=== PATIENT | female | born 1985 | race Caucasian/White ===

== ENCOUNTER 2020-02-15 06:09 | Inpatient (IN) | payer OTHER ==
[~2020-02-15 06:09] MED LIST: Bupivacaine 0.25% 10 ML SDV ONE
[2020-02-15] MEDS ORDERED: Ondansetron 4 MG/2 ML SDV IVPUSH PRN (06:22)
[2020-02-15] MEDS ORDERED: Sodium Chloride 0.9% 10 ML Syringe FLUSH PRN (06:22)
[2020-02-15] MEDS ORDERED: Nalbuphine 10 MG/ML Syringe IVPUSH PRN (06:22)
[2020-02-15] MEDS ORDERED: Lidocaine 1% 50 ML MDV INJECT ONE (06:22)
[2020-02-15] MEDS ORDERED: Calcium Carbonate 500 MG Tab.Chew PO PRN (06:22)
[2020-02-15] MEDS ORDERED: Oxytocin/Lactated Ringers 10 UNIT/1,000 ML BAG IV SCH (06:30)
--- NOTE | 2020-02-15 07:14 | PCM.LDHP ---
L&D History of Present Illness - General Date of Service: 02/15/20 Admit Problem/Dx: Patient Status Order with Admit Dx/Problem 02/15/20 06:22 Patient Status [ADT] Routine Admission Diagnosis/Problem Admission Diagnosis/Problem Active labor Source of Information: Patient History Limitations: Reports: No Limitations - History of Present Illness Introduction:: Patient is a 34 y/o at 40 0/7 wks who presents in labor. Contractions started a few hours prior to presentation. Strong. No LOF. 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 LMP (Approximate): - Past Surgical History Female Surgical History: Reports: Section Social & Family History - Family History Family Medical History: Noncontributory - Tobacco Use Smoking Status *Q: Former Smoker Years of Tobacco use: 10 Packs/Tins Daily: 0.5 Used Tobacco, but Quit: Yes Month/Year Tobacco Last Used: 10/2013 Second Hand Smoke Exposure: No - Alcohol Use Alcohol Use History: No - Recreational Drug Use Recreational Drug Use: No H&P Review of Systems - Review of Systems: Review Of Systems: See Below General: Reports: No Symptoms Pulmonary: Reports: No Symptoms Cardiovascular: Reports: No Symptoms Gastrointestinal: Reports: No Symptoms Genitourinary: Reports: No Symptoms Musculoskeletal: Reports: No Symptoms Psychiatric: Reports: No Symptoms Neurological: Reports: No Symptoms L&D Exam - Exam Exam: See Below - Vital Signs Vital Signs: Last Vital Signs Temp 36.5 C 02/15/20 06:22 Pulse 99 02/15/20 06:22 Resp 16 02/15/20 06:22 BP 147/89 H 02/15/20 06:22 Pulse Ox 100 02/15/20 06:22 Weight: 116.256 kg - OB Specific Contraction Intensity: Moderate to Strong Movement: Active Heart Tones: Present Heart Tones per Min: 145 Heart Rate (FHR) Variability: Moderate (6-25 bmp) Presentation: Vertex - Gage Score Gage Score Cervix Position: Anterior Gage Score Consistency: Soft Gage Score Effacement: >80% Gage Score Dilation: 3-4 cm Gage Score Infant's Station: -1 ,0 Gage Score Total: 11 - Exam General: Alert, Oriented, Cooperative Lungs: Clear to Auscultation, Normal Respiratory Effort Cardiovascular: Regular Rate, Regular Rhythm GI/Abdominal Exam: Soft, Non-Tender Genitourinary: Normal external exam Extremities: Normal Inspection Skin: Warm, Dry, Intact - Patient Data Lab Results Last 24 hrs: Laboratory Results - last 24 hr 02/15/20 Range/Units 06:31 WBC 16.80 H (3.98-10.04) K/mm3 RBC 4.52 (3.98-5.22) M/mm3 Hgb 13.5 (11.2-15.7) gm/dl Hct 40.0 (34.1-44.9) % MCV 88.5 (79.4-94.8) fl MCH 29.9 (25.6-32.2) pg MCHC 33.8 (32.2-35.5) g/dl RDW Std Deviation 41.8 (36.4-46.3) fL Plt Count 199 (182-369) K/mm3 MPV 10.6 (9.4-12.3) fl Neut % (Auto) 86.4 H (34.0-71.1) % Lymph % (Auto) 6.8 L (19.3-51.7) % [place] % (Auto) 5.9 (4.7-12.5) % Eos % (Auto) 0.3 L (0.7-5.8) Baso % (Auto) 0.1 (0.1-1.2) % Neut # (Auto) 14.52 H (1.56-6.13) K/mm3 Lymph # (Auto) 1.15 L (1.18-3.74) K/mm3 [place] # (Auto) 0.99 H (0.24-0.36) K/mm3 Eos # (Auto) 0.05 (0.04-0.36) K/mm3 Baso # (Auto) 0.01 (0.01-0.08) K/mm3 Result Diagrams: 02/15/20 06:31 - Problem List (1) 40 weeks gestation of SNOMED Code(s): 34753483 ICD Code: Z3A.40 - 40 WEEKS GESTATION OF Status: Acute Current Visit: Yes (2) Normal labor SNOMED Code(s): 09923510 ICD Code: O80 - ENCOUNTER FOR FULL-TERM UNCOMPLICATED DELIVERY; Z37.9 - OUTCOME OF DELIVERY, UNSPECIFIED Status: Acute Current Visit: Yes (3) History of SNOMED Code(s): 291483134 ICD Code: Z98.891 - HISTORY OF UTERINE SCAR FROM PREVIOUS SURGERY Status: Acute Current Visit: Yes (4) Desires (vaginal after ) trial SNOMED Code(s): 877720706, 263872469 ICD Code: O34.219 - MATERNAL CARE FOR UNSP TYPE SCAR FROM PREVIOUS DEL Status: Acute Current Visit: Yes (5) Rh negative state in antepartum period SNOMED Code(s): 176497552 ICD Code: O26.899 - OTH RELATED CONDITIONS, UNSPECIFIED TRIMESTER; Z67.91 - UNSPECIFIED BLOOD TYPE, RH NEGATIVE Status: Acute Current Visit: Yes Problem List Initiated/Reviewed/Updated: Yes Orders Last 24hrs: Active Orders 24 hr Category Date Time Status Patient Status [ADT] Routine ADT 02/15/20 06:22 Active Activity as Tolerated [RC] PFP Care 02/15/20 06:22 Active Communication Order [RC] ASDIRECTED Care 02/15/20 06:22 Active Heart Tones [RC] ASDIRECTED Care 02/15/20 06:23 Active Notify Provider [RC] PFP Care 02/15/20 06:22 Active Notify Provider [RC] PRN Care 02/15/20 06:22 Active Peripheral IV Care [RC] Q2HR Care 02/15/20 06:23 Active Pump Management, Intrathecal [RC] ASDIRECTED Care 02/15/20 06:23 Active Urinary Catheter Assessment [RC] ASDIRECTED Care 02/15/20 06:22 Active Vital Signs [RC] PER UNIT ROUTINE Care 02/15/20 06:22 Active Regular Diet [DIET] Diet 02/15/20 Breakfast Active CBC WITH AUTO DIFF [HEME] Stat Lab 02/15/20 06:31 Results RAPID PLASMA REAGIN,RPR [CHEM] Stat Lab 02/15/20 06:31 Received TYPE AND SCREEN [BBK] Stat Lab 02/15/20 06:31 Received Calcium Carbonate [Tums] Med 02/15/20 06:22 Active 1,000 mg PO Q2H PRN Lactated Ringers [Ringers, Lactated] 1,000 ml Med 02/15/20 06:30 Active IV ASDIRECTED Nalbuphine [Nubain] Med 02/15/20 06:22 Active 10 mg IVPUSH Q2H PRN Ondansetron [Zofran] Med 02/15/20 06:22 Active 4 mg IVPUSH Q4H PRN Oxytocin/Lactated Ringers [Pitocin in LR 10 Units/1,000 Med 02/15/20 06:30 Active ML] 10 unit in 1,000 ml IV .CONTINUOUS Sodium Chloride 0.9% [Saline Flush] Med 02/15/20 06:22 Active 10 ml FLUSH ASDIRECTED PRN Electronic Heart Tones Ext w TOCO [WOMSER] Oth 02/15/20 06:22 Ordered Routine Electronic Heart Tones Internal [WOMSER] Per Unit Oth 02/15/20 06:22 Ordered Routine Peripheral IV Insertion Adult [OM.PC] Routine Oth 02/15/20 06:22 Ordered Resuscitation Status Routine Resus Stat 02/15/20 06:22 Ordered Medication Orders Calcium Carbonate/Glycine (Tums) 1,000 mg PO Q2H PRN PRN Reason: Indigestion Lactated Ringer's (Ringers, Lactated) 1,000 mls @ 100 mls/hr IV ASDIRECTED HUSEYIN Oxytocin/Lactated Ringer's (Pitocin In Lr 10 Units/1,000 Ml) 10 unit in 1,000 mls @ 500 mls/hr IV .CONTINUOUS HUSEYIN Nalbuphine HCl (Nubain) 10 mg IVPUSH Q2H PRN PRN Reason: Pain Ondansetron HCl (Zofran) 4 mg IVPUSH Q4H PRN PRN Reason: Nausea/Vomiting Sodium Chloride (Saline Flush) 10 ml FLUSH ASDIRECTED PRN PRN Reason: Keep Vein Open Assessment/Plan Comment:: * Labs done * GBS negative * Pain management per patient preference * Patient with history of and then for NRFS - desires . Aware of risks/benefits * Anticipate * Assess baby blood type following delivery to see if additional Rhogam required
[2020-02-15] MEDS: Lactated Ringers 1,000 ML IV SCH ×2 (07:18→08:32)
[2020-02-15] MEDS ORDERED: ePHEDrine 50 MG/ML SDV IVPUSH PRN (07:22)
[2020-02-15] MEDS ORDERED: diphenhydrAMINE 50 MG/ML SDV IVPUSH PRN (07:22)
[2020-02-15] MEDS ORDERED: Bupivacaine/fentaNYL/NS 100 ML Bag EPIDUR PRN (07:22)
[2020-02-15] MEDS ORDERED: fentaNYL 100 MCG/2 ML SDV EPIDUR PRN (07:22)
--- NOTE | 2020-02-15 08:31 | PCM.PREANE ---
Preanesthetic Assessment - Procedure Proposed Procedure: epidural - Anesthesia/Transfusion/Family Hx Anesthesia History: Prior Anesthesia Without Reaction Family History of Anesthesia Reaction: No Transfusion History: No Prior Transfusion(s) - Review of Systems General: Fatigue Pulmonary: No Symptoms Cardiovascular: No Symptoms Gastrointestinal: Abdominal Pain (labor) Neurological: No Symptoms Other: Reports: None - Physical Assessment Vital Signs: Last Vital Signs Temp 36.5 C 02/15/20 06:22 Pulse 99 02/15/20 06:22 Resp 16 02/15/20 06:22 BP 147/89 H 02/15/20 06:22 Pulse Ox 100 02/15/20 06:22 Height: 1.73 m Weight: 116.256 kg ASA Class: 2 Mental Status: Alert & Oriented x3 Airway Class: Mallampati = 2 Dentition: Reports: Normal Dentition Thyro-Mental Finger Breadths: 3 Mouth Opening Finger Breadths: 3 ROM/Head Extension: Full Lungs: Clear to Auscultation, Normal Respiratory Effort Cardiovascular: Regular Rate, Regular Rhythm - Lab Values: Laboratory Last Values WBC 16.80 K/mm3 (3.98-10.04) H 02/15/20 06:31 RBC 4.52 M/mm3 (3.98-5.22) 02/15/20 06:31 Hgb 13.5 gm/dl (11.2-15.7) 02/15/20 06:31 Hct 40.0 % (34.1-44.9) 02/15/20 06:31 MCV 88.5 fl (79.4-94.8) 02/15/20 06:31 MCH 29.9 pg (25.6-32.2) 02/15/20 06:31 MCHC 33.8 g/dl (32.2-35.5) 02/15/20 06:31 RDW Std Deviation 41.8 fL (36.4-46.3) 02/15/20 06:31 Plt Count 199 K/mm3 (182-369) 02/15/20 06:31 MPV 10.6 fl (9.4-12.3) 02/15/20 06:31 Neut % (Auto) 86.4 % (34.0-71.1) H 02/15/20 06:31 Lymph % (Auto) 6.8 % (19.3-51.7) L 02/15/20 06:31 [place] % (Auto) 5.9 % (4.7-12.5) 02/15/20 06:31 Eos % (Auto) 0.3 (0.7-5.8) L 02/15/20 06:31 Baso % (Auto) 0.1 % (0.1-1.2) 02/15/20 06:31 Neut # (Auto) 14.52 K/mm3 (1.56-6.13) H 02/15/20 06:31 Lymph # (Auto) 1.15 K/mm3 (1.18-3.74) L 02/15/20 06:31 [place] # (Auto) 0.99 K/mm3 (0.24-0.36) H 02/15/20 06:31 Eos # (Auto) 0.05 K/mm3 (0.04-0.36) 02/15/20 06:31 Baso # (Auto) 0.01 K/mm3 (0.01-0.08) 02/15/20 06:31 Manual Slide Review Abnormal smear 02/15/20 06:31 Blood Type A NEGATIVE 02/15/20 06:31 Gel Antibody Screen Negative 02/15/20 06:31 - Allergies Allergies/Adverse Reactions: Allergies Allergy/AdvReac Type Severity Reaction Status Date / Time No Known Allergies Allergy Verified 02/15/20 06:25 - Anesthesia Plan Pre-Op Medication Ordered: None - Acknowledgements Anesthesia Type Planned: Epidural Pt an Appropriate Candidate for the Planned Anesthesia: Yes Alternatives and Risks of Anesthesia Discussed w Pt/Guardian: Yes Pt/Guardian Understands and Agrees with Anesthesia Plan: Yes PreAnesthesia Questionnaire Gastrointestinal History: Reports: 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: - Past Surgical History Female Surgical History: Reports: Section - SUBSTANCE USE Smoking Status *Q: Former Smoker Tobacco Use Within Last Twelve Months: Cigarettes Second Hand Smoke Exposure: No Recreational Drug Use History: No - HOME MEDS Home Medications: Home Meds Folic Acid 0.8 mg PO DAILY 02/15/20 [History] No122/Iron/Folic Acid [ Multi Tablet] 1 each PO DAILY 02/15/20 [History] - CURRENT (IN HOUSE) MEDS Current Meds: Current Medications Calcium Carbonate/Glycine (Tums) 1,000 mg PO Q2H PRN PRN Reason: Indigestion Diphenhydramine HCl (Benadryl) 25 mg IVPUSH Q6H PRN PRN Reason: Itching Ephedrine Sulfate (Ephedrine Sulfate) 5 mg IVPUSH ASDIRECTED PRN PRN Reason: HYPOTENTSION Fentanyl (Sublimaze) 100 mcg EPIDUR Q3H PRN PRN Reason: Pain Last Admin: 02/15/20 08:04 Dose: 100 mcg Fentanyl/Bupivacaine HCl (Fentanyl/Bupivacaine/Ns 2 Mcg-0.125% 100 Ml) 100 ml EPIDUR CONTINUOUS PRN PRN Reason: Pain Last Admin: 02/15/20 08:04 Dose: 100 ml Lactated Ringer's (Ringers, Lactated) 1,000 mls @ 100 mls/hr IV ASDIRECTED HUSEYIN Last Admin: 02/15/20 07:18 Dose: 100 mls/hr Oxytocin/Lactated Ringer's (Pitocin In Lr 10 Units/1,000 Ml) 10 unit in 1,000 mls @ 500 mls/hr IV .CONTINUOUS HUSEYIN Nalbuphine HCl (Nubain) 10 mg IVPUSH Q2H PRN PRN Reason: Pain Ondansetron HCl (Zofran) 4 mg IVPUSH Q4H PRN PRN Reason: Nausea/Vomiting Sodium Chloride (Saline Flush) 10 ml FLUSH ASDIRECTED PRN PRN Reason: Keep Vein Open Discontinued Medications Lidocaine HCl (Xylocaine 1%) 20 ml INJECT ONETIME ONE Stop: 02/15/20 06:23
--- NOTE | 2020-02-15 11:09 | PCM.DEL ---
L & D Note - General Info Date of Service: 02/15/20 - Delivery Note Labor: Spontaneous Delivery Outcome: Livebirth Delivery Method: Spontaneous Vaginal Delivery-Single Delivery Mode: Spontaneous Presentation: Left Occiput Anterior (TRISTIAN) Nuchal Cord: None Anesthesia Type: Epidural Amniotic Fluid Description: Clear Episiotomy Type: None Laceration: None Placenta: Intact, Spontaneous Cord: 3 Vessels Estimated Blood Loss: 100 [place]: Bulb Syringe, Stimulated, Warmed, [place] Used, Warmer Used Delivery Comments (Free Text/Narrative):: Patient found to be complete and began pushing. With maternal pushing effort head delivered from an TRISTIAN presentation. No nuchal cord present. With gentle downward traction the shoulders and body delivered. Infant placed on maternal abdomen. Cord clamped and cut. Cord blood obtained. Placenta allowed time to separate and expelled intact. Inspection of the perineum showed no lacerations - General Info Date of Service: 02/15/20 - Patient Data Vitals - Most Recent: Last Vital Signs Temp 36.5 C 02/15/20 06:22 Pulse 99 02/15/20 06:22 Resp 16 02/15/20 06:22 BP 147/89 H 02/15/20 06:22 Pulse Ox 100 02/15/20 06:22 Weight - Most Recent: 116.256 kg - Problem List & Annotations (1) 40 weeks gestation of SNOMED Code(s): 86542238 Code(s): Z3A.40 - 40 WEEKS GESTATION OF Status: Acute Current Visit: Yes (2) Normal labor SNOMED Code(s): 73403322 Code(s): O80 - ENCOUNTER FOR FULL-TERM UNCOMPLICATED DELIVERY; Z37.9 - OUTCOME OF DELIVERY, UNSPECIFIED Status: Acute Current Visit: Yes (3) History of SNOMED Code(s): 642431098 Code(s): Z98.891 - HISTORY OF UTERINE SCAR FROM PREVIOUS SURGERY Status: Acute Current Visit: Yes (4) Desires (vaginal after ) trial SNOMED Code(s): 463349552, 512491702 Code(s): O34.219 - MATERNAL CARE FOR UNSP TYPE SCAR FROM PREVIOUS DEL Status: Acute Current Visit: Yes (5) Rh negative state in antepartum period SNOMED Code(s): 118915702 Code(s): O26.899 - OTH RELATED CONDITIONS, UNSPECIFIED TRIMESTER; Z67.91 - UNSPECIFIED BLOOD TYPE, RH NEGATIVE Status: Acute Current Visit: Yes (6) , delivered, current hospitalization SNOMED Code(s): 633536642 Code(s): O34.219 - MATERNAL CARE FOR UNSP TYPE SCAR FROM PREVIOUS DEL Status: Acute Current Visit: Yes - Problem List Review Problem List Initiated/Reviewed/Updated: Yes - My Orders Last 24 Hours: My Active Orders 02/15/20 06:22 Patient Status [ADT] Routine Activity as Tolerated [RC] PFP Communication Order [RC] ASDIRECTED Notify Provider [RC] PFP Notify Provider [RC] PRN Urinary Catheter Assessment [RC] ASDIRECTED Vital Signs [RC] PER UNIT ROUTINE Calcium Carbonate [Tums] 1,000 mg PO Q2H PRN Nalbuphine [Nubain] 10 mg IVPUSH Q2H PRN Ondansetron [Zofran] 4 mg IVPUSH Q4H PRN Sodium Chloride 0.9% [Saline Flush] 10 ml FLUSH ASDIRECTED PRN Electronic Heart Tones Ext w TOCO [WOMSER] Routine Electronic Heart Tones Internal [WOMSER] Per Unit Routine Peripheral IV Insertion Adult [OM.PC] Routine Resuscitation Status Routine 02/15/20 06:23 Heart Tones [RC] ASDIRECTED Peripheral IV Care [RC] Q2HR Pump Management, Intrathecal [RC] ASDIRECTED 02/15/20 06:30 Lactated Ringers [Ringers, Lactated] 1,000 ml IV ASDIRECTED Oxytocin/Lactated Ringers [Pitocin in LR 10 Units/1,000 ML] 10 unit in 1,000 ml IV .CONTINUOUS 02/15/20 06:31 RAPID PLASMA REAGIN,RPR [CHEM] Stat 02/15/20 08:24 PATIENT RETYPE [BBK] Routine 02/15/20 11:04 Patient Status Manage Transfer [TRANSFER] Routine 02/15/20 Breakfast Regular Diet [DIET] - Assessment Assessment:: PPD#0 - Plan Plan:: * Routine cares * Breast feeding * Assess baby blood type following delivery to see if additional Rhogam required * Discharge home in 1-2 days
[2020-02-15] MEDS ORDERED: Benzocaine/Menthol 20%-0.5% Spray 56 GM Canister TOP PRN (11:43)
[2020-02-15] MEDS ORDERED: Ibuprofen 600 MG Tab PO PRN (11:43)
[2020-02-15] MEDS ORDERED: Acetaminophen 325 MG Tab PO PRN (11:43)
[2020-02-15] MEDS ORDERED: Witch Hazel Medicated Pads 40/Jar TOP PRN (11:43)
[2020-02-15] MEDS ORDERED: Docusate Sodium 100 MG Cap PO PRN (11:43)
--- NOTE | 2020-02-16 07:17 | PCM.DCSUM1 ---
Discharge Summary - Hospital Course Brief History: Admitted in labor. Uncomplicated . Desires discharge home PPD1 Diagnosis: Stroke: No - Discharge Data Discharge Date: 02/16/20 Discharge Disposition: Home, Self-Care 01 Condition: Good - Referral to Home Health Primary Care Physician: Dea Morris MD - Patient Instructions Diet: Usual Diet as Tolerated Activity: No Strenuous Activities Activity, Other: pelvic rest Driving: May Drive Today Notify Provider of: Fever, Increased Pain, Swelling and Redness, Drainage, Nausea and/or Vomiting - Discharge Plan *PRESCRIPTION DRUG MONITORING PROGRAM REVIEWED*: No *COPY OF PRESCRIPTION DRUG MONITORING REPORT IN PATIENT MARK: No Home Medications: Home Meds Folic Acid 0.8 mg PO DAILY 02/15/20 [History] No122/Iron/Folic Acid [ Multi Tablet] 1 each PO DAILY 02/15/20 [History] Referrals: Dea Morris MD [Primary Care Provider] - (2 weeks) - Discharge Summary/Plan Comment DC Time >30 min.: No - General Info Date of Service: 02/16/20 Functional Status: Reports: Pain Controlled - Review of Systems General: Reports: No Symptoms HEENT: Reports: No Symptoms Pulmonary: Reports: No Symptoms Cardiovascular: Reports: No Symptoms Gastrointestinal: Reports: No Symptoms Genitourinary: Reports: No Symptoms Musculoskeletal: Reports: No Symptoms Skin: Reports: No Symptoms Neurological: Reports: No Symptoms Psychiatric: Reports: No Symptoms - Patient Data Vitals - Most Recent: Last Vital Signs Temp 36.8 C 02/16/20 04:18 Pulse 95 02/16/20 04:18 Resp 16 02/15/20 21:00 BP 133/73 02/16/20 04:18 Pulse Ox 97 02/16/20 04:18 Weight - Most Recent: 116.256 kg I&O - Last 24 hours: Intake & Output 02/15/20 02/16/20 02/16/20 22:59 06:59 14:59 Intake Total 2 Balance 2 Lab Results - Last 24 hrs: Laboratory Results - last 24 hr 02/15/20 02/15/20 02/15/20 Range/Units 06:31 06:31 06:31 Manual Slide Review Abnormal smear RPR Non-reactive (NONREACTIVE) Blood Type A NEGATIVE Gel Antibody Screen Negative Screen RhIG Candidate? Rhogam Indicated 02/15/20 Range/Units 19:08 Manual Slide Review RPR (NONREACTIVE) Blood Type Cancelled Gel Antibody Screen Cancelled Screen 0 ros/5 flds - neg RhIG Candidate? Yes Rhogam Indicated Cancelled Med Orders - Current: Current Medications Acetaminophen (Tylenol) 650 mg PO Q4H PRN PRN Reason: mild pain or fever Benzocaine/Menthol (Dermoplast Pain Relief [place]) 0 gm TOP ASDIRECTED PRN PRN Reason: Perineal Comfort Measure Last Admin: 02/15/20 13:30 Dose: 1 can Docusate Sodium (Colace) 100 mg PO BID PRN PRN Reason: Constipation Ibuprofen (Motrin) 600 mg PO Q6H PRN PRN Reason: Mild pain or fever Witch Ale (Tucks) 1 pad TOP ASDIRECTED PRN PRN Reason: Perineal Comfort Measure Last Admin: 02/15/20 13:30 Dose: 1 tub Discontinued Medications Bupivacaine HCl (Sensorcaine-Mpf 0.25%) 10 ml .ROUTE .STK-MED ONE Stop: 02/15/20 00:01 Calcium Carbonate/Glycine (Tums) 1,000 mg PO Q2H PRN PRN Reason: Indigestion Diphenhydramine HCl (Benadryl) 25 mg IVPUSH Q6H PRN PRN Reason: Itching Ephedrine Sulfate (Ephedrine Sulfate) 5 mg IVPUSH ASDIRECTED PRN PRN Reason: HYPOTENTSION Fentanyl (Sublimaze) 100 mcg EPIDUR Q3H PRN PRN Reason: Pain Last Admin: 02/15/20 08:04 Dose: 100 mcg Fentanyl/Bupivacaine HCl (Fentanyl/Bupivacaine/Ns 2 Mcg-0.125% 100 Ml) 100 ml EPIDUR CONTINUOUS PRN PRN Reason: Pain Last Admin: 02/15/20 08:04 Dose: 100 ml Lactated Ringer's (Ringers, Lactated) 1,000 mls @ 100 mls/hr IV ASDIRECTED HUSEYIN Last Admin: 02/15/20 08:32 Dose: 100 mls/hr Oxytocin/Lactated Ringer's (Pitocin In Lr 10 Units/1,000 Ml) 10 unit in 1,000 mls @ 500 mls/hr IV .CONTINUOUS HUSEYIN Last Admin: 02/15/20 10:52 Dose: 500 mls/hr Lidocaine HCl (Xylocaine 1%) 20 ml INJECT ONETIME ONE Stop: 02/15/20 06:23 Nalbuphine HCl (Nubain) 10 mg IVPUSH Q2H PRN PRN Reason: Pain Ondansetron HCl (Zofran) 4 mg IVPUSH Q4H PRN PRN Reason: Nausea/Vomiting Sodium Chloride (Saline Flush) 10 ml FLUSH ASDIRECTED PRN PRN Reason: Keep Vein Open - Exam General: Reports: Alert, Oriented HEENT: Reports: Pupils Equal, Pupils Reactive, EOMI, Mucous Membr. Moist/[place] Neck: Reports: Supple Lungs: Reports: Clear to Auscultation, Normal Respiratory Effort Cardiovascular: Reports: Regular Rate, Regular Rhythm GI/Abdominal Exam: Normal Bowel Sounds, Soft, Non-Tender, No Organomegaly, No Distention, No Abnormal Bruit, No Mass, Pelvis Stable Back Exam: Reports: Normal Inspection, Full Range of Motion Extremities: Normal Inspection, Normal Range of Motion, Non-Tender, No Pedal Edema, Normal Capillary Refill Skin: Reports: Warm, Dry, Intact Wound/Incisions: Reports: Healing Well Neurological: Reports: No New Focal Deficit Psy/Mental Status: Reports: Alert, Normal Affect, Normal Mood
--- NOTE | 2020-02-16 11:21 | PCM48HPAN ---
Post Anesthesia Note - EVALUATION WITHIN 48HRS OF ANESTHETIC Vital Signs in Normal Range: Yes Patient Participated in Evaluation: Yes Respiratory Function Stable: Yes Airway Patent: Yes Cardiovascular Function Stable: Yes Hydration Status Stable: Yes Pain Control Satisfactory: Yes Nausea and Vomiting Control Satisfactory: Yes Mental Status Recovered: Yes Vital Signs: Last Vital Signs Temp 36.8 C 02/16/20 08:06 Pulse 81 02/16/20 08:06 Resp 12 02/16/20 08:06 BP 127/72 02/16/20 08:06 Pulse Ox 99 02/16/20 08:06 - COMMENTS/OBSERVATIONS Free Text/Narrative:: no anesthesia complications noted
== END 2020-02-16 13:14 | disposition home or self-care (01) | DRG 807 ==
LOC: JD.OB 06:09 → UNDOADMOB 06:09 → JD.OB 10:51 → OBSVTOIN 10:51 → JD.OB 10:52
PROVIDERS: ADMIT Obstetrics & Gynecology; ATTEND Obstetrics & Gynecology
PROC: 10E0XZZ Delivery of Products of Conception, External Approach (ICD-10-PCS; principal; 2020-02-15)
PROC: 3E0R3BZ Introduction of Anesthetic Agent into Spinal Canal, Percutaneous Approach (ICD-10-PCS; 2020-02-15)
PROC: 3E0334Z Introduction of Serum, Toxoid and Vaccine into Peripheral Vein, Percutaneous Approach (ICD-10-PCS; 2020-02-15)
DX: O48.0 Post-term pregnancy (principal); Z37.0 Single live birth; O34.219 Maternal care for unspecified type scar from previous cesarean delivery; O26.893 Other specified pregnancy related conditions, third trimester; Z79.899 Other long term (current) drug therapy; Z3A.40 40 weeks gestation of pregnancy; Z67.11 Type A blood, Rh negative; Z87.891 Personal history of nicotine dependence
CPT/HCPCS: 01967; 36415; 51702; 59025; 59409; 85025; 85461; 86592; 86850; 86900; 86901; A9270-GY; J2590; J2790; J3010; J3490; J7120